=== PATIENT | female | born 1935 | race Caucasian/White ===

== ENCOUNTER 2021-05-02 10:47 | Inpatient (IN) ==
[2021-05-02 12:19] LABS: Calcium 9.3 MG/DL (8.5-10.1); Potassium 4.4 MMOL/L (3.5-5.1)
[2021-05-02 12:24] LABS: Basophils % 0.2 % (0.0-0.8); Eosinophils # 0.1 10*3/uL (0.0-0.87); Eosinophils % 0.4 % (0.00-10.9); Hematocrit 47.6 VOL% (35.7-47.0); Hemoglobin 15.1 GM/DL (12.0-16.0); Immature Granulocytes % 0.4 %; Immature Granulocytes Absolute 0.06 #; Lymphocytes # 3.5 10*3/uL (1.4-4.0); Lymphocytes % 23.7 % (21.3-54.2); Mean Corpuscular HGB Conc 31.7 GM/DL (32-36); Mean Corpuscular Volume 92.2 FL (87-102); Mean Platelet Volume 10.5 FL (9.6-12.0); Monocytes % 8.6 % (1.7-12.7); Neutrophils % 66.7 % (38.7-73.9); Platelet Count 347 T/CUMM (130-400); Red Blood Count 5.16 MC/CUMM (3.8-5.5); Red Cell Distribution Width 13.1 % (9.3-17.3); White Blood Count 14.7 T/CUMM (4-12)
[2021-05-02] MEDS ORDERED: DEXTROSE 50% 25 GM/50 ML VIAL IV PRN (12:26)
[2021-05-02] MEDS ORDERED: ONDANSETRON 4 MG/2 ML VIAL IV PRN (12:26)
[2021-05-02] MEDS ORDERED: GLUCAGON 1 MG VIAL IM PRN (12:26)
[2021-05-02] MEDS ORDERED: ACETAMINOPHEN 325 MG TABLET PO PRN (12:26)
[2021-05-02 12:35] LABS: INR 1.1; PT Patient Result 11.9 SECS (10.5-12.0); Partial Thromboplastin Time 25.4 SECS (23.9-33.8)
[2021-05-02] MEDS ORDERED: HYDROmorphone 2 MG/1 ML VIAL IV ONE (13:14)
[2021-05-02] MEDS: SODIUM CHLORIDE 0.45% 1,000 ML IV SCH (15:00)
[2021-05-02] MEDS: ENOXAPARIN 30 MG/0.3 ML SYRINGE SUBCUT SCH (15:18)
[2021-05-02] MEDS: INSULIN LISPRO 100 UNIT/ML SUBCUT SCH ×2 (16:50→21:58)
[2021-05-02] MEDS: amLODIPine 5 MG TABLET PO SCH (20:28)
[2021-05-02] MEDS: MELOXICAM 7.5 MG TABLET PO SCH (20:28)
[2021-05-02] MEDS: lisinopriL 20 MG TABLET PO SCH (20:28)
[2021-05-02] MEDS: sitaGLIPtin 100 MG TABLET PO SCH (20:28)
[2021-05-02] MEDS: DOCUSATE SODIUM 100 MG CAPSULE PO SCH (20:28)
[2021-05-02] MEDS: GABAPENTIN 300 MG CAPSULE PO SCH (20:28)
[2021-05-03] MEDS: SODIUM CHLORIDE 0.45% 1,000 ML IV SCH ×2 (03:22→18:25)
[2021-05-03 05:54] LABS: Calcium 9.3 MG/DL (8.5-10.1); Osmolality,Calculated 278.4 MOS/KG (273-304); Potassium 4.5 MMOL/L (3.5-5.1)
[2021-05-03] MEDS: INSULIN LISPRO 100 UNIT/ML SUBCUT SCH ×4 (06:56→20:34)
[2021-05-03] MEDS ORDERED: DEXAMETHASONE 4 MG/1 ML VIAL ONE (07:37)
[2021-05-03] MEDS ORDERED: ROPIVACAINE 0.5% 30 ML VIAL ONE (07:37)
[2021-05-03] MEDS ORDERED: LIDOCAINE 50 MG/5 ML SYRINGE ONE ×2 (07:37→10:28)
[2021-05-03] MEDS ORDERED: fentaNYL 100 MCG/2 ML VIAL ONE (08:00)
[2021-05-03] MEDS ORDERED: DEXMEDETOMIDINE 200 MCG/2 ML VIAL ONE (08:00)
[2021-05-03] MEDS ORDERED: ONDANSETRON 4 MG/2 ML VIAL ONE (08:02)
[2021-05-03] MEDS ORDERED: ETOMIDATE 40 MG/20 ML VIAL IV ONE ×2 (08:02→08:29)
[2021-05-03] MEDS ORDERED: SEVOFLURANE 1 UNIT/15 MINUTE INH ONE ×5 (08:29→09:48)
[2021-05-03] MEDS ORDERED: PHENYLEPHRINE 1 MG/10 ML SYRINGE IV ONE (08:29)
[2021-05-03] MEDS ORDERED: LACTATED RINGERS 1,000 ML IV ONE (08:38)
[2021-05-03] MEDS: DOCUSATE SODIUM 100 MG CAPSULE PO SCH ×2 (09:00→20:34)
[2021-05-03] MEDS ORDERED: ONDANSETRON 4 MG/2 ML VIAL IV PRN (10:22)
[2021-05-03] MEDS ORDERED: HYDROmorphone 2 MG/1 ML VIAL IV PRN (10:22)
[2021-05-03] MEDS ORDERED: KETOROLAC 30 MG/1 ML VIAL ONE (10:27)
[2021-05-03] MEDS ORDERED: BUPIVACAINE 0.5% 50 ML VIAL ONE (10:28)
[2021-05-03] MEDS ORDERED: KETOROLAC 30 MG/1 ML VIAL IV ONE (10:29)
[2021-05-03] MEDS: ENOXAPARIN 30 MG/0.3 ML SYRINGE SUBCUT SCH (12:30)
[2021-05-03] MEDS: PANTOPRAZOLE 40 MG TABLET PO SCH (15:17)
[2021-05-03] MEDS: rOPINIRole 1 MG TABLET PO PRN (16:14)
[2021-05-03] MEDS ORDERED: DEXTROSE 50% 25 GM/50 ML VIAL IV PRN (17:22)
[2021-05-03] MEDS ORDERED: GLUCAGON 1 MG VIAL IM PRN (17:22)
[2021-05-03] MEDS: lisinopriL 20 MG TABLET PO SCH (20:34)
[2021-05-03] MEDS: sitaGLIPtin 100 MG TABLET PO SCH (20:34)
[2021-05-03] MEDS: MELOXICAM 7.5 MG TABLET PO SCH (20:34)
[2021-05-03] MEDS: amLODIPine 5 MG TABLET PO SCH (20:34)
[2021-05-03] MEDS: GABAPENTIN 300 MG CAPSULE PO SCH (20:34)
[2021-05-04] MEDS: SODIUM CHLORIDE 0.45% 1,000 ML IV SCH ×2 (06:30→20:00)
[2021-05-04] MEDS: INSULIN LISPRO 100 UNIT/ML SUBCUT SCH ×4 (06:46→21:32)
[2021-05-04] MEDS: PANTOPRAZOLE 40 MG TABLET PO SCH (10:10)
[2021-05-04] MEDS: DOCUSATE SODIUM 100 MG CAPSULE PO SCH ×2 (10:10→21:26)
[2021-05-04] MEDS: rOPINIRole 1 MG TABLET PO PRN (11:47)
[2021-05-04] MEDS: ENOXAPARIN 30 MG/0.3 ML SYRINGE SUBCUT SCH (12:13)
[2021-05-04] MEDS: MELOXICAM 7.5 MG TABLET PO SCH (21:25)
[2021-05-04] MEDS: amLODIPine 5 MG TABLET PO SCH (21:25)
[2021-05-04] MEDS: sitaGLIPtin 100 MG TABLET PO SCH (21:25)
[2021-05-04] MEDS: GABAPENTIN 300 MG CAPSULE PO SCH (21:25)
[2021-05-04] MEDS: lisinopriL 20 MG TABLET PO SCH (21:25)
[2021-05-05 06:04] LABS: Basophils % 0.3 % (0.0-0.8); Eosinophils # 0.2 10*3/uL (0.0-0.87); Eosinophils % 2.2 % (0.00-10.9); Hematocrit 38.8 VOL% (35.7-47.0); Immature Granulocytes % 0.3 %; Immature Granulocytes Absolute 0.03 #; Lymphocytes # 3.8 10*3/uL (1.4-4.0); Lymphocytes % 39.6 % (21.3-54.2); Mean Corpuscular HGB Conc 31.2 GM/DL (32-36); Mean Corpuscular Volume 93.3 FL (87-102); Mean Platelet Volume 10.8 FL (9.6-12.0); Monocytes % 11.3 % (1.7-12.7); Neutrophils % 46.3 % (38.7-73.9); Platelet Count 307 T/CUMM (130-400); Red Blood Count 4.16 MC/CUMM (3.8-5.5); Red Cell Distribution Width 13.2 % (9.3-17.3)
[2021-05-05 06:07] LABS: Hemoglobin 12.1 GM/DL (12.0-16.0); White Blood Count 9.5 T/CUMM (4-12)
[2021-05-05 06:20] LABS: Calcium 8.4 MG/DL (8.5-10.1); Osmolality,Calculated 281.1 MOS/KG (273-304); Potassium 3.9 MMOL/L (3.5-5.1)
[2021-05-05] MEDS: SODIUM CHLORIDE 0.45% 1,000 ML IV SCH ×2 (09:22→23:40)
[2021-05-05] MEDS: DOCUSATE SODIUM 100 MG CAPSULE PO SCH ×2 (09:23→20:31)
[2021-05-05] MEDS: PANTOPRAZOLE 40 MG TABLET PO SCH (09:23)
[2021-05-05] MEDS: INSULIN LISPRO 100 UNIT/ML SUBCUT SCH ×4 (09:23→22:11)
[2021-05-05] MEDS ORDERED: TUBERCULIN SKIN TEST 0.1 ML SYRINGE INTRADERM ONE (11:08)
[2021-05-05] MEDS: ENOXAPARIN 30 MG/0.3 ML SYRINGE SUBCUT SCH (13:15)
[2021-05-05] MEDS: MELOXICAM 7.5 MG TABLET PO SCH (20:30)
[2021-05-05] MEDS: sitaGLIPtin 100 MG TABLET PO SCH (20:30)
[2021-05-05] MEDS: amLODIPine 5 MG TABLET PO SCH (20:30)
[2021-05-05] MEDS: lisinopriL 20 MG TABLET PO SCH (20:31)
[2021-05-05] MEDS: GABAPENTIN 300 MG CAPSULE PO SCH (20:31)
[2021-05-06] MEDS: rOPINIRole 1 MG TABLET PO PRN (05:50)
[2021-05-06] MEDS: INSULIN LISPRO 100 UNIT/ML SUBCUT SCH ×2 (08:39→11:34)
[2021-05-06] MEDS: PANTOPRAZOLE 40 MG TABLET PO SCH (09:22)
[2021-05-06] MEDS: DOCUSATE SODIUM 100 MG CAPSULE PO SCH (09:22)
[2021-05-06 11:14] VITALS: BP 138/60
[2021-05-06] MEDS: ENOXAPARIN 30 MG/0.3 ML SYRINGE SUBCUT SCH (11:36)
[2021-05-06] MEDS: SODIUM CHLORIDE 0.45% 1,000 ML IV SCH (13:32)
== END 2021-05-06 13:30 | DRG 494 ==
LOC: N.ED 10:47 → N.EDINP 12:26 → N.3E 12:50
PROVIDERS: ADMIT Family Medicine; ATTEND Family Medicine

== ENCOUNTER 2021-08-22 09:47 | Observation (INO) ==
[2021-08-22] MEDS ORDERED: cefTRIAXone 1,000 MG in SODIUM CHLORIDE 0.9% 100 ML IV STA (10:23)
[2021-08-22] MEDS ORDERED: SODIUM CHLORIDE 0.9% 500 ML IV STA (10:23)
[2021-08-22 11:37] LABS: Basophils % 0.1 % (0.0-0.8); Eosinophils % 0.3 % (0.00-10.9); Hematocrit 45.9 VOL% (35.7-47.0); Hemoglobin 14.6 GM/DL (12.0-16.0); Immature Granulocytes % 0.9 %; Immature Granulocytes Absolute 0.14 #; Lymphocytes # 1.4 10*3/uL (1.4-4.0); Lymphocytes % 9.1 % (21.3-54.2); Mean Corpuscular HGB Conc 31.8 GM/DL (32-36); Mean Platelet Volume 10.1 FL (9.6-12.0); Monocytes % 6.9 % (1.7-12.7); Neutrophils % 82.7 % (38.7-73.9); Platelet Count 343 T/CUMM (130-400); Red Blood Count 4.99 MC/CUMM (3.8-5.5); Red Cell Distribution Width 14.1 % (9.3-17.3); White Blood Count 15.1 T/CUMM (4-12)
[2021-08-22 11:59] LABS: Bilirubin,Urine Negative (Negative); Blood, Urine Negative (Negative); Glucose,Urine (UA) Negative (Negative); Ketones,Urine 20 mg/dL (Negative); Mucus,Urine Few /LPF (Occasional); Nitrite,Urine Positive (Negative); Protein,Urine 30 MG/DL; RBC,Urine <1 /HPF (0-4); Squamous Epithelial Cell,Urine Occasional /HPF (0-10); Urine Appearance CLEAR (Clear); Urine Color Amber (Yellow); Urine Specific Gravity 1.021 (1.001-1.035)
[2021-08-22 12:00] LABS: Albumin 2.9 G/DL (3.4-5.0); Bilirubin,Total 0.8 MG/DL (0.20-1.00); Calcium 9.1 MG/DL (8.5-10.1); Osmolality,Calculated 266.4 MOS/KG (273-304); Potassium 4.8 MMOL/L (3.5-5.1); Total Protein 7.1 G/DL (6.4-8.2)
[2021-08-22] MEDS ORDERED: DEXTROSE 50% 25 GM/50 ML VIAL IV STA (12:05)
[2021-08-22] MEDS ORDERED: DEXTROSE 50% 25 GM/50 ML SYRINGE IV STA (12:07)
[2021-08-22] MEDS ORDERED: DEXTROSE 50% 25 GM/50 ML SYRINGE IV ONE (12:07)
[2021-08-22] MEDS ORDERED: ACETAMINOPHEN 325 MG TABLET PO PRN (12:14)
[2021-08-22] MEDS ORDERED: ONDANSETRON 4 MG/2 ML VIAL IV PRN (12:14)
[2021-08-22] MEDS ORDERED: GLUCAGON 1 MG VIAL IM PRN (12:14)
[2021-08-22] MEDS ORDERED: DEXTROSE 50% 25 GM/50 ML SYRINGE IV PRN (12:21)
[2021-08-22] MEDS ORDERED: SODIUM CHLORIDE 0.45% 1,000 ML IV SCH (12:30)
[2021-08-22] MEDS ORDERED: cefTRIAXone 1,000 MG in SODIUM CHLORIDE 0.9% 100 ML IV SCH (12:30)
[2021-08-22] MEDS: DEXTROSE 5% NACL 0.45% 1,000 ML IV SCH (14:04)
[2021-08-22] MEDS: INSULIN LISPRO 100 UNIT/ML SUBCUT SCH ×2 (16:38→20:50)
[2021-08-22] MEDS: ENOXAPARIN 40 MG/0.4 ML SYRINGE SUBCUT SCH (17:25)
[2021-08-22] MEDS: DOCUSATE SODIUM 100 MG CAPSULE PO SCH (20:52)
[2021-08-22] MEDS: DEXTROSE 50% 25 GM/50 ML SYRINGE IV PRN (20:53)
[2021-08-23] MEDS: DEXTROSE 5% NACL 0.45% 1,000 ML IV SCH ×2 (03:35→17:40)
[2021-08-23] MEDS: DEXTROSE 50% 25 GM/50 ML SYRINGE IV PRN (05:34)
[2021-08-23 06:35] LABS: Basophils % 0.2 % (0.0-0.8); Eosinophils # 0.2 10*3/uL (0.0-0.87); Eosinophils % 1.7 % (0.00-10.9); Hematocrit 42.8 VOL% (35.7-47.0); Hemoglobin 13.1 GM/DL (12.0-16.0); Immature Granulocytes % 0.6 %; Immature Granulocytes Absolute 0.06 #; Lymphocytes # 2.5 10*3/uL (1.4-4.0); Lymphocytes % 23.7 % (21.3-54.2); Mean Corpuscular HGB Conc 30.6 GM/DL (32-36); Mean Corpuscular Volume 95.1 FL (87-102); Mean Platelet Volume 9.9 FL (9.6-12.0); Monocytes % 9.3 % (1.7-12.7); Neutrophils % 64.5 % (38.7-73.9); Platelet Count 317 T/CUMM (130-400); Red Cell Distribution Width 14.5 % (9.3-17.3); White Blood Count 10.6 T/CUMM (4-12)
[2021-08-23] MEDS: DOCUSATE SODIUM 100 MG CAPSULE PO SCH ×2 (08:50→21:48)
[2021-08-23] MEDS: PANTOPRAZOLE 40 MG TABLET PO SCH (08:50)
[2021-08-23] MEDS: INSULIN LISPRO 100 UNIT/ML SUBCUT SCH ×4 (09:01→20:43)
[2021-08-23] MEDS ORDERED: traMADol 50 MG TABLET PO PRN (10:10)
[2021-08-23] MEDS ORDERED: rOPINIRole 1 MG TABLET PO PRN (10:10)
[2021-08-23] MEDS: cefTRIAXone 1,000 MG in SODIUM CHLORIDE 0.9% 100 ML IV SCH (11:13)
[2021-08-23] MEDS: ENOXAPARIN 40 MG/0.4 ML SYRINGE SUBCUT SCH (13:43)
[2021-08-23] MEDS ORDERED: amLODIPine 5 MG TABLET PO SCH (21:00)
[2021-08-23] MEDS ORDERED: lisinopriL 20 MG TABLET PO SCH (21:00)
[2021-08-23] MEDS ORDERED: INSULIN GLARGINE 100 UNIT/ML SUBCUT SCH (21:00)
[2021-08-23] MEDS ORDERED: sitaGLIPtin 100 MG TABLET PO SCH (21:00)
[2021-08-24] MEDS: DEXTROSE 5% NACL 0.45% 1,000 ML IV SCH (05:54)
[2021-08-24] MEDS: DOCUSATE SODIUM 100 MG CAPSULE PO SCH (10:23)
[2021-08-24] MEDS: PANTOPRAZOLE 40 MG TABLET PO SCH (10:23)
[2021-08-24] MEDS: INSULIN LISPRO 100 UNIT/ML SUBCUT SCH ×2 (10:30→13:54)
[2021-08-24 12:04] VITALS: BP 144/66
[2021-08-24] MEDS: cefTRIAXone 1,000 MG in SODIUM CHLORIDE 0.9% 100 ML IV SCH (13:55)
[2021-08-24] MEDS: ENOXAPARIN 40 MG/0.4 ML SYRINGE SUBCUT SCH (13:55)
== END 2021-08-24 15:24 | disposition home health service (06) ==
LOC: N.ED 09:47 → N.EDINP 09:47 → N.3E 14:26
PROVIDERS: ADMIT Family Medicine; ATTEND Family Medicine